=== PATIENT | female | born 1955 | race Two or more races ===

== ENCOUNTER 2018-03-27 17:52 | Emergency (ER) | payer MEDICAID ==
[~2018-03-27] VITALS: Ht 162.6 cm; Wt 65.8 kg
[2018-03-27] MEDS ORDERED: LORazepam Inj 2mg/ml 1ml IM ONE (19:15)
[2018-03-27] MEDS ORDERED: DiphenhydrAMINE 50mg/ml Inj IM ONE (19:15)
[2018-03-27 19:42] LABS: EOSINOPHILS % (AUTO) 0.1 % (0.0-3.0); HEMATOCRIT 37.3 % (37.0-47.0); HEMOGLOBIN 13.8 G/DL (12.0-16.0); LYMPHOCYTES % (AUTO) 6.4 % (20.0-45.0); MEAN CORPUSCULAR VOLUME 97 FL (80-99); MONOCYTES % (AUTO) 8.2 % (1.0-10.0); NEUTROPHILS % (AUTO) 84.3 % (45.0-75.0); PLATELET COUNT 111 K/UL (150-450); RED BLOOD COUNT 3.84 M/UL (4.20-5.40); RED CELL DISTRIBUTION WIDTH 11.6 % (11.6-14.8); WHITE BLOOD COUNT 6.9 K/UL (4.8-10.8)
[2018-03-27 19:51] LABS: ANION GAP 13 mmol/L (5-15); BLOOD UREA NITROGEN 20 mg/dL (7-18); CALCIUM 8.5 MG/DL (8.5-10.1); CARBON DIOXIDE 23 MMOL/L (21-32); CHLORIDE 104 MMOL/L (98-107); CREATININE 0.8 MG/DL (0.55-1.30); POTASSIUM 3.7 MMOL/L (3.5-5.1); SODIUM 140 MMOL/L (136-145)
[2018-03-27 20:02] LABS: ALANINE AMINOTRANSFERASE 56 U/L (12-78); ALBUMIN 3.5 G/DL (3.4-5.0); ALBUMIN/GLOBULIN RATIO 0.8 (1.0-2.7); ALKALINE PHOSPHATASE 95 U/L (46-116); ASPARTATE AMINO TRANSFERASE 136 U/L (15-37)
[2018-03-27 20:03] LABS: BILIRUBIN,DIRECT 1.4 MG/DL (0.0-0.3)
[2018-03-27 20:29] VITALS: BP 99/62
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
[2018-03-27 23:45] VITALS: BP 99/62
[2018-03-28 02:50] VITALS: BP 102/72
[2018-03-28] MEDS ORDERED: ZYPREXA5 MG ORAL (05:57)
[2018-03-28 06:29] VITALS: BP 115/70
[2018-03-28 06:30] VITALS: BP 115/74
== END 2018-03-28 06:15 | disposition home or self-care (01) ==
LOC: EDBD 17:52 → EMR 19:23
DX: F22 Delusional disorders (principal); F20.9 Schizophrenia, unspecified; R91.8 Other nonspecific abnormal finding of lung field
CPT/HCPCS: 36415; 80053; 80307; 80329; 82248; 85025; 99283; J1200

== ENCOUNTER 2018-11-25 19:45 | Emergency (ER) | payer MEDICAID ==
[~2018-11-25] VITALS: Ht 157.5 cm; Wt 63.5 kg
[~2018-11-25 19:45] MED LIST: ZYPREXA5 MG ORAL
[2018-11-25] MEDS ORDERED: NKM (19:55)
[2018-11-25 20:02] VITALS: BP 114/73
--- NOTE | 2018-11-25 20:02 | NUR ---
ED Nurse Note: Pt walked into ED from street, c/o right leg pain and stomach pain 11/16. Pt is A/O X4, Vital signs stable at this time, waiting for orders.
--- NOTE | 2018-11-25 20:40 | Emergency Room Report ---
History of Present Illness General Chief Complaint: Pain Source: Patient Present Illness HPI 63-year-old female presents to the emergency department with multiple complaints some of which are constipation, 5/10 in severity pain in the right leg at the hip with leg frequently giving out on her, fall as well as tenderness and swelling to the right forehead she states she fell and hit her head on cement. She reports history of [place] when she was 55 in addition to having liver cirrhosis. Patient reports that she does drink alcohol regularly. Denies illicit drug use. She reports that she is prescribed stomach acid medication, Lasix, potassium, thiamine and vitamin B. She denies swelling in the lower extremities she denies back pain. Denies fevers or chills. She denies chest pain, shortness of breath or palpitations. Allergies: Coded Allergies: No Known Allergies (Unverified , 03/27/18) Patient History Past Medical History: see triage record Past Surgical History: none Pertinent Family History: none Social History: Reports: alcohol use Reviewed Nursing Documentation: PMH: Agreed; PSxH: Agreed Nursing Documentation-PMH Past Medical History: No Stated History Review of Systems All Other Systems: negative except mentioned in HPI Physical Exam Vital Signs Date Time Temp Pulse Resp B/P (MAP) Pulse Ox O2 Delivery O2 Flow Rate FiO2 11/25/18 19:51 98.2 76 14 99 Sp02 EP Interpretation: reviewed, normal General Appearance: no apparent distress, alert, GCS 15, non-toxic, other - somewhat Disheveled/grossly contaminated- not soiled, Chronically Ill Head: normocephalic, other - small hematoma/ contusion to the right forehead, no lacerations or abrasions. Eyes: bilateral eye normal inspection, bilateral eye PERRL, bilateral eye EOMI ENT: hearing grossly normal, normal voice Neck: full range of motion, no bony tend Respiratory: lungs clear, normal breath sounds, no respiratory distress, no accessory muscle use, no wheezing, speaking full sentences Cardiovascular #1: regular rate, rhythm, no edema Gastrointestinal: normal bowel sounds, non tender, soft, non-distended, no guarding Musculoskeletal: back normal, gait/station normal, normal range of motion, tender - TTP to the lateral right hip. and to the right side of the forehead Neurologic: alert, oriented x3, responsive, motor strength/tone normal, sensory intact, normal gait, speech normal, other - no nystagmus, grossly normal Psychiatric: judgement/insight normal Skin: normal color, no rash, warm/dry, well hydrated Medical Decision Making PA Attestation Dr. Del Rosario is my supervising Physician whom patient management has been discussed with. Homeless Attestation I, The treating provider, Ashlyn LAFLEUR, has assessed and agrees that patient is medically stable for discharge to an outpatient disposition. Diagnostic Impression: Primary Impression: Leg pain, right Additional Impression: Forehead contusion Qualified Codes: S00.83XA - Contusion of other part of head, initial encounter ER Course 63-year-old female presents to the emergency department with multiple complaints some of which are constipation, 5/10 in severity pain in the right leg at the hip with leg frequently giving out on her, fall as well as tenderness and swelling to the right forehead she states she fell and hit her head on cement. She reports history of [place] when she was 55 in addition to having liver cirrhosis. Patient reports that she does drink alcohol regularly. Denies illicit drug use. She reports that she is prescribed stomach acid medication, Lasix, potassium, thiamine and vitamin B. She denies swelling in the lower extremities she denies back pain. Denies fevers or chills. She denies chest pain, shortness of breath or palpitations. Ddx considered but are not limited to Fracture, dislocation, contusion, Sprain/ Strain/Spasm, acute head injury, subdural hematoma, lacerations, ETOH intoxication just to name a few. Vital signs: are WNL, pt. is afebrile H&PE are most consistent with musculoskeletal injury will perform imaging to r/ o fractures/dislocations. ORDERS: - CT HIP and CT HEAD: WNL ED INTERVENTIONS: - Tylenol PO DISCHARGE: At this time pt. is stable for d/c to home. Will provide printed patient care instructions, and any necessary prescriptions. Care plan and follow up instructions have been discussed with the patient prior to discharge. CT/MRI/US Diagnostic Results CT/MRI/US Diagnostic Results #1: Imaging Test Ordered: CT head No Contrast Impression No evidence of acute fracture, hemorrhage, or intracranial process---- Per official radiology report- Please see report for specific details. CT/MRI/US Diagnostic Results #2: Imaging Test Ordered: CT right Hip Impression unremarkable, no acute fractures or dislocations--Per official radiology report - Please see report for specific details. Last Vital Signs Date Time Temp Pulse Resp B/P (MAP) Pulse Ox O2 Delivery O2 Flow Rate FiO2 11/25/18 19:51 98.2 76 14 99 Disposition: HOME, SELF-CARE Condition: Stable Scripts Na Phos,M-B/Na Phos,Di-Ba (ENEMA [id number]) 133 Ml Enema 133 ML RC DAILY, #2 EA Prov: Ashlyn Brenner 11/25/18 Acetaminophen* (TYLENOL EXTRA STRENGTH*) 500 Mg Tablet 500 MG ORAL Q8H PRN for Prn Headache/Temp > 101, #12 TAB 0 Refills Prov: Ashlyn Brenner 11/25/18 Referrals: [facility],REFERDANIEL (PCP) Patient Instructions: Contusion, [id number], Hip Pain Additional Instructions: Take previously prescribed medications as directed. Follow up with a Primary Care Provider in 3-5 days, even if your symptoms have resolved. --Please review list of primary care clinics, if you do not already have a primary care provider Return sooner to ED if new symptoms occur, or current symptoms become worse. Continue to Limit or avoid alcohol use. - Please note that this Emergency Department Report was dictated using Fangtekquality control manager technology software, occasionally this can lead to erroneous entry secondary to interpretation by the dictation equipment. Ashlyn Brenner November 25, 2018 20:40
--- NOTE | 2018-11-25 20:40 | NUR ---
ED Nurse Note: Pt was sent down for CT of head.
--- NOTE | 2018-11-25 20:58 | NUR ---
ED Nurse Note: Pt returned from CT of head.
--- NOTE | 2018-11-25 20:59 | NUR ---
ED Nurse Note: Pt has a plastic Gun in her bag, double checked with Robbi/ Charge nurse, Ashlyn/MIQUEL.
--- NOTE | 2018-11-25 21:05 | NUR ---
ED Nurse Note: Pt was sent down for CT of Rt hip.
--- NOTE | 2018-11-25 21:35 | NUR ---
ED Nurse Note: Pt returned from CT of hip.
--- NOTE | 2018-11-25 21:50 | NUR ---
ED Nurse Note: [place] juice and sandwiches provided.
[2018-11-25] MEDS ORDERED: TYLENOL EXTRA500 MG ORAL (22:07)
[2018-11-25] MEDS ORDERED: ENEMA READY-TO133 ML RC (22:20)
[2018-11-25 22:35] VITALS: BP 118/72
--- NOTE | 2018-11-25 22:35 | NUR ---
Homeless Discharge: Patient is being discharged from medical care. CT of head and CT of right hip done. Pt is Awake, alert and oriented x4. After care instructions, including referral to community resources were given. Patient verbalized understanding of After care instructions. Patient does not request medications, equipment or placement at this time . Patient signed patient consent in the medical record for patient destination upon discharge. All medical devices such as ID band was removed. Patient ambulated out with Cane and all personal belongings.
--- NOTE | 2018-11-26 11:46 | Diagnostic Imaging Report ---
Indication: Headache Technique: Contiguous 5 mm thick transaxial imaging of the head obtained in a Siemens Sensation [address] scanner. Soft tissue and bone windows generated. Automatic Exposure Control was utilized. Total Dose length Product (DLP): 1325.[address] Dose Index Volume (CTDIvol): 70.38 mGy Comparison: none Findings: There is mild prominence of the ventricles, basal cisterns, and cerebral sulci consistent with atrophy. Mild, nonspecific, white matter hypoattenuation is noted throughout the brain consistent with chronic small vessel disease. There is no midline shift, edema, acute hemorrhage, mass effect, or abnormal extra-axial fluid collections. Bones and extra osseous soft tissues are unremarkable. Impression: No acute intracranial bleed, mass effect or edema. Mild atrophy of the brain. Nonspecific white matter hypoattenuation probably due to chronic small vessel disease. [facility] has communicated the preliminary results to the Emergency Department. Their findings are largely concordant with this report. The CT scanner at [facility] is accredited by the [employer] and the scans are performed using dose optimization techniques as appropriate to a performed exam including Automatic Exposure control.
--- NOTE | 2018-11-26 11:52 | Diagnostic Imaging Report ---
Indication: Hip pain Technique: continuous helical imaging in the transaxial plane was performed from the iliac crests to the pubic symphysis with attention to the right hip. Coronal 2-D reformatted images were also generated. Study obtained in a Siemens Sensation [address] total DLP: 539.51 mGycm CTD/vol: 16.41 mGy Comparison: None Findings: There is no evidence of an acute fracture or significant malalignment identified on this examination. There is posterior soft tissue swelling with subcutaneous reticular densities present the period Incidental cystic focus noted in the left adnexal region measuring about 4.5 x 3.0 cm. This could be an ovarian/paraovarian cyst or possibly a bladder diverticulum. This is not evaluated well on the current exam. There is a small right inguinal hernia containing fat. Normal appendix noted. IMPRESSION: No acute fracture of the right hip identified. Soft tissue injury/contusion Left ovarian cyst versus bladder diverticulum. Suggest further evaluation. Small right inguinal hernia containing fat [facility] has communicated the preliminary results to the Emergency Department. Their findings are largely concordant with this report. The CT scanner at [facility] is accredited by the [employer] and the scans are performed using dose optimization techniques as appropriate to a performed exam including Automatic Exposure control.
== END 2018-11-25 22:35 | disposition home or self-care (01) ==
LOC: EMR 20:15
DX: M79.604 Pain in right leg (principal); S00.83XA Contusion of other part of head, initial encounter; I25.2 Old myocardial infarction; K74.60 Unspecified cirrhosis of liver; K40.90 Unilateral inguinal hernia, without obstruction or gangrene, not specified as recurrent; G31.9 Degenerative disease of nervous system, unspecified; W19.XXXA Unspecified fall, initial encounter; Y92.9 Unspecified place or not applicable
CPT/HCPCS: 70450; 99284